=== PATIENT | male | born 1955 | race Caucasian/White ===

== ENCOUNTER → 2016-06-14 | Outpatient (CLI) | payer MEDICARE, BC ==
[2013-09-17 14:41] VITALS: BP 138/84
[~2016-06-14] MED LIST: BUPR150T6 PO; HYDR-2762 PO; IOHEXOL 180 MG/ML 10 ML VIAL. ONE; LISI10TA2 PO; OXYC1TAB7 PO; TIOT18CA IH; methylPREDNISolone ACETATE 40 MG/ML VIAL. ONE; methylPREDNISolone ACETATE 80 MG/ML VIAL. ONE
--- NOTE | 2016-06-15 02:19 | PAIN ---
DATE OF SERVICE: 06/14/2016 PROGRESS NOTE DIAGNOSES: Lumbar radiculopathy with lumbar herniated disk, lumbar degenerative disk disease. HISTORY OF PRESENT ILLNESS: The patient is a 61-year-old male who returns for followup status post lumbar epidural steroid injections x 2, most recently seen on 02/15/2016. The patient reports he did very well after the injection with about 65% improvement from the last injection. The patient reports the pain is beginning to return now, he has been helping two of his family member's relocate and has been doing a lot of moving, heavy lifting, taking objects out of the truck and into homes and out, etc. The patient reports it has exacerbated his pain to some extent in the low back, bilateral lower extremities, right equal to left, mostly in posterior gluteus, posterolateral thigh, lateral anterior thighs, lower legs on the posterior aspect as well. The patient reports no new motor or sensory deficits, no new bowel or bladder incontinence or other complaints. The patient reports the pain as 10 on scale of 10 and describes it as aching sensation for most part. The patient reports no new motor or sensory deficits, no new changes. The patient's old chart was reviewed as his current medication regimen updated. Current review of systems updated today as well. PHYSICAL EXAMINATION: VITAL SIGNS: Today, the patient's blood pressure is 150/81, pulse 68, respirations 18, temperature 98.1 degrees Fahrenheit, height is 5 feet 6 inches and weighs 139 pounds. GENERAL: The patient is awake, alert, oriented, appropriate, very pleasant demeanor. HEENT: Shows normocephalic, atraumatic. Extraocular movements are intact and symmetrical. Oral cavity shows mucous membranes are moist and pink. Dentition is intact. NECK: Shows anterior throat supple without palpable lymphadenopathy noted. Swallow reflex is symmetrical. CHEST: Shows normal on inspection. Breath sounds are clear to auscultation bilaterally. HEART: Shows S1 and S2 clear. ABDOMEN: Soft, nontender, and nondistended. BACK: Shows spine grossly in midline. The patient's lumbar paraspinous muscle shows some moderate tenderness with palpation diffusely in the mid and lower lumbar distribution, but without specific radiation, without atrophy, hypertrophy without asymmetry. No tenderness over the spinous processes or the sacrum or sacroiliac regions. The patient shows good rotation and motion of the lumbar spine, both laterally as well as extension and flexion. EXTREMITIES: The patient's lower extremities show deep tendon reflexes 2+ in the patellar tendons. Motor exam is strong with 5/5 dorsiflexion, extension, quadriceps and hamstring flexion. PLAN: Options were discussed with the patient. We will proceed with a lumbar epidural steroid injection, a third in the series with fluoroscopic guidance today. Risks were again discussed including, but not limited to bleeding, infection, possibility of epidural hematoma and subsequent neurologic compromise, dural puncture, headaches, spinal cord and/or nerve damage, side effects of steroid medication, exacerbation of current symptoms and poor results regarding pain control. The patient understands and wished to proceed. The patient will return to clinic in approximately 2 weeks for followup. He was counseled as to return appointment, activity level and side effects to be aware of. DIAGNOSES: Lumbar radiculopathy with lumbar herniated disk and lumbar degenerative disk disease. PROCEDURE: Lumbar epidural steroid injection in translaminar approach at the L4-L5 level using C-arm fluoroscopic guidance with sterile prep and drape and using local anesthetic. MEDICATION INJECTED: Depo-Medrol 120 mg plus 10 mL of preservative-free normal saline and 2 mL of Isovue for contrast. CONDITION AT DISCHARGE: Stable. The patient tolerated the procedure well, had no complications. RACHID TOBIAS MD DR: LARISA/jerome JOB#: [id number] / [id number]
== END ==
LOC: PNCL 11:45
PROVIDERS: ATTEND Anesthesiology
DX: M51.16 Intervertebral disc disorders with radiculopathy, lumbar region (principal)
CPT/HCPCS: 62323; J1030; J1040

== ENCOUNTER → 2016-11-15 | Outpatient (CLI) | payer MEDICARE ==
[2013-09-17 14:41] VITALS: BP 138/84
--- NOTE | 2016-11-16 00:08 | PAIN ---
DATE OF SERVICE: 11/15/2016 PROGRESS NOTE FOR PAIN CLINIC DIAGNOSES: Lumbar radiculopathy with lumbar herniated disk, lumbar degenerative disk disease. HISTORY OF PRESENT ILLNESS: The patient is a 61-year-old male who returns for followup status post lumbar epidural steroid injection, last seen in 06/2016. The patient did very well with about 60% improvement. The patient reports the pain is returning now for about a month in the low back, into the bilateral lower extremities as it was previously. The patient reports worse with activity, standing, walking, changing positions, it is a 10 on a scale of 10 at its worst, it is a 4 on scale 10 currently. The patient reports it wakes him from sleep. Occasionally he gets cramps in his lower legs, which awaken him, not necessarily the back pain, otherwise he is doing well. No new motor or sensory deficits, no new bowel or bladder incontinence. Just some return to the pain as described as aching, sharp, cramping tingling on and off in intensity, but becoming more constant. PHYSICAL EXAMINATION: VITAL SIGNS: The patient's blood pressure ____, pulse 80, respirations 20, temperature 97.6 degrees Fahrenheit, height is 5 feet 6 inches, weight is 135 pounds. GENERAL: The patient is awake, alert, oriented, appropriate, very pleasant demeanor. HEENT: Head shows normocephalic, atraumatic. Extraocular movements are intact and symmetrical. Oral cavity, mucous membranes are moist and pink. Dentition is intact. NECK: Shows anterior throat supple without palpable lymphadenopathy noted. Swallow reflex is symmetrical. CHEST: Shows normal on inspection. Breath sounds are clear to auscultation bilaterally. HEART: Shows S1 and S2 clear. No murmurs auscultated. ABDOMEN: Soft, nontender, nondistended. No palpable organomegaly. There is no rebound or guarding demonstrated. BACK: Shows spine grossly midline. Lumbar paraspinous musculature shows symmetrical with inspection and palpation, is very firm throughout the upper and lower distribution and diffusely tender throughout as well without atrophy, hypertrophy. The patient has good rotational motion both laterally as well as extension and flexion. EXTREMITIES: Lower extremities showed deep tendon reflexes 2+ in the patellar and 1+ tendo calcaneus tendons are equal. Motor exam is strong with dorsiflexion, extension, quadriceps and hamstring flexion rated 5/5 and symmetrical. Options were discussed with the patient, the patient's old chart was reviewed as his current medication regimen updated. Current review of systems updated today as well. We will proceed with the lumbar epidural steroid injection today with fluoroscopic guidance. Risks were again discussed including but not limited to bleeding, infection, possibility of epidural hematoma, subsequent neurologic compromise, dural puncture, headaches, spinal cord and/or nerve damage, side effects of steroid medication and poor results regarding pain control. The patient understands and wishes to proceed. The patient will return to clinic in approximately 2 weeks for followup. He was counseled on return appointment, activity level and side effects to be aware of. DIAGNOSES: Lumbar radiculopathy with lumbar herniated disk and lumbar degenerative disk disease. PROCEDURES: Lumbar epidural steroid injection in translaminar approach at the L4-L5 level using C-arm fluoroscopic guidance under sterile prep and drape using local anesthetic. MEDICATIONS INJECTED: 120 mg of Depo-Medrol plus 10 mL of preservative-free saline and 2 mL of Isovue for contrast. CONDITION AT DISCHARGE: Stable. The patient tolerated the procedure well, had no complications. RACHID TOBIAS MD DR: LARISA/jerome JOB#: [id number] / [id number]
== END | disposition home or self-care (01) ==
LOC: PNCL 09:51
PROVIDERS: ATTEND Anesthesiology
DX: M51.16 Intervertebral disc disorders with radiculopathy, lumbar region (principal); I10 Essential (primary) hypertension; J44.9 Chronic obstructive pulmonary disease, unspecified; M19.90 Unspecified osteoarthritis, unspecified site; Z87.39 Personal history of other diseases of the musculoskeletal system and connective tissue; Z72.89 Other problems related to lifestyle; Z72.0 Tobacco use
CPT/HCPCS: 62323; J1030; J1040

== ENCOUNTER → 2016-12-13 | Outpatient (CLI) | payer MEDICARE ==
[2013-09-17 14:41] VITALS: BP 138/84
[~2016-12-13] MED LIST changes: -IOHEXOL 180 MG/ML 10 ML VIAL. ONE; -methylPREDNISolone ACETATE 40 MG/ML VIAL. ONE; -methylPREDNISolone ACETATE 80 MG/ML VIAL. ONE
== END | disposition home or self-care (01) ==
LOC: PNCL 10:30
PROVIDERS: ATTEND Anesthesiology
DX: M51.16 Intervertebral disc disorders with radiculopathy, lumbar region (principal)
CPT/HCPCS: G0463

== ENCOUNTER → 2017-01-25 | Outpatient (CLI) | payer MEDICARE ==
[2013-09-17 14:41] VITALS: BP 138/84
[~2017-01-25] MED LIST changes: +IOHEXOL 180 MG/ML 10 ML VIAL. ONE; +methylPREDNISolone ACETATE 40 MG/ML VIAL. ONE; +methylPREDNISolone ACETATE 80 MG/ML VIAL. ONE
--- NOTE | 2017-01-25 21:04 | PAIN ---
DATE OF SERVICE: 01/25/2017 DIAGNOSES: Lumbar radiculopathy with lumbar herniated disk and lumbar degenerative disk disease. HISTORY OF PRESENT ILLNESS: The patient is a 61-year-old male who returns for followup status post lumbar epidural steroid injection, last injection was on 11/15/2016. The patient reports he did very well with near 100% improvement following 2 months. The pain is beginning to return now in the low back as it was previously in bilateral lower extremities. The patient reports it is a 10 on a scale of 10. It is worst, it is 8 on average and is currently a 3 on a scale of 10 today. The patient reports no new motor or sensory deficits. Reports the pain is in the low back radiating to both posterior gluteus, lateral anterior thigh, anterior medial thighs, posterior thighs, shooting, cramping, constant, on and off in intensity becoming more constant. The patient reports he is sleeping well at night. Reports pain does awaken him occasionally. He can reposition to relieve the pain, but this does not happen every night. The patient reports no new motor or sensory deficits, no new bowel or bladder incontinence or other complaints. PHYSICAL EXAMINATION: VITAL SIGNS: Today, the patient's blood pressure 136/86, pulse 71, respirations are 20, temperature is 97.9 degrees Fahrenheit. Weight is 131 pounds. The patient's height is 5 feet 6 inches. GENERAL: The patient is awake, alert, oriented, appropriate, very pleasant demeanor. HEENT: Shows normocephalic, atraumatic. Extraocular movements are intact and symmetrical. Oral cavity, mucous membranes are moist and pink. Dentition is intact. NECK: Shows anterior throat supple without palpable lymphadenopathy noted. Swallow reflex is symmetrical. CHEST: Shows normal on inspection. Breath sounds clear to auscultation bilaterally. HEART: Shows S1 and S2 clear. ABDOMEN: Soft, nontender, nondistended. No palpable organomegaly is noted. No rebound or guarding demonstrated. BACK: The patient's back show spine grossly in midline with inspection shows lumbar paraspinous musculature, which is symmetrical without evidence of atrophy or hypertrophy. With palpation shows some moderate tenderness bilaterally, but only diffusely in the lower lumbar distribution without radiation. No tenderness over the sacrum or sacroiliac regions. The patient's lumbar spine shows full rotational motion without difficulty both laterally as well as extension and flexion. EXTREMITIES: Lower extremities show deep tendon reflexes 2+ in the patellar, 1+ tendocalcaneus tendons are equal. Motor exam is strong with 5/5 dorsiflexion, extension, quadriceps and hamstring flexion equal. Options were discussed with the patient. We will plan on a second lumbar epidural steroid injection today with fluoroscopic guidance. Risks were again discussed including, but not limited to bleeding, infection, possibility of epidural hematoma, subsequent neurologic compromise, dural puncture, headaches, spinal cord and/or nerve damage, side effects of steroid medication and poor results regarding pain control. The patient understands and wishes to proceed. The patient will return to clinic in approximately 2 weeks for followup, was counseled on return appointment, activity level and side effects to be aware of. DIAGNOSIS: Lumbar radiculopathy with lumbar herniated disk and lumbar degenerative disk disease. PROCEDURE: Lumbar epidural steroid injection, translaminar approach at the L4-L5 level using C-arm fluoroscopic guidance under sterile prep and drape using local anesthetic. MEDICATION INJECTED: Total of 120 mg Depo-Medrol plus 10 mL of preservative-free normal saline and 2 mL of Isovue for contrast. CONDITION AT DISCHARGE: Stable. The patient tolerated procedure well, had no complications. RACHID TOBIAS MD DR: LARISA/jerome JOB#: [id number] / [id number]
== END | disposition home or self-care (01) ==
LOC: PNCL 11:31
PROVIDERS: ATTEND Anesthesiology
DX: M51.16 Intervertebral disc disorders with radiculopathy, lumbar region (principal); I10 Essential (primary) hypertension; J44.9 Chronic obstructive pulmonary disease, unspecified; M19.90 Unspecified osteoarthritis, unspecified site; F17.200 Nicotine dependence, unspecified, uncomplicated; Z87.39 Personal history of other diseases of the musculoskeletal system and connective tissue; Z72.89 Other problems related to lifestyle; Z72.0 Tobacco use
CPT/HCPCS: 62323; J1030; J1040

== ENCOUNTER 2017-05-07 07:36 | Emergency (ER) | payer OTHER, MEDICARE, BC ==
[2013-09-17 14:41] VITALS: BP 138/84
[~2017-05-07] VITALS: Ht 167.6 cm; Wt 58.1 kg
[~2017-05-07 07:36] MED LIST changes: -IOHEXOL 180 MG/ML 10 ML VIAL. ONE; -methylPREDNISolone ACETATE 40 MG/ML VIAL. ONE; -methylPREDNISolone ACETATE 80 MG/ML VIAL. ONE
--- NOTE | 2017-05-07 07:59 | PHYS DOC ---
Past Medical History Past Medical History: COPD, Hypertension, Other Additional Past Medical Histor: buldging disc Past Surgical History: Other Additional Past Surgical Histo: pin/plate arm and leg surgery Alcohol Use: Occasionally Drug Use: Marijuana Adult General Chief Complaint Chief Complaint: HAND PROBLEM HPI HPI Patient is a 62 year old male presents the ED complaining of numbness and tingling to bilateral hands since last night at 7pm. Patient states he recently started taking amlodipine 1 week ago. States he also takes lisinopril. Denies injury, hand swelling, tongue swelling, difficulty swallowing, headache, fever, chest pain, shortness of breath, n/v, or weakness. Review of Systems Review of Systems Constitutional: Denies fever or chills [] Eyes: Denies change in visual acuity, redness, or eye pain [] HENT: Denies nasal congestion or sore throat [] Respiratory: Denies cough or shortness of breath [] Cardiovascular: No additional information not addressed in HPI [] GI: Denies abdominal pain, nausea, vomiting, bloody stools or diarrhea [] : Denies dysuria or hematuria [] Musculoskeletal: Denies back pain or joint pain [] Integument: Denies rash or skin lesions [] Neurologic: Denies headache, focal weakness or sensory changes [] Endocrine: Denies polyuria or polydipsia [] All other systems were reviewed and found to be within normal limits, except as documented in this note. Allergies Allergies Allergies Coded Allergies Type Severity Reaction Last Updated Verified No Known Drug Allergies 09/13/13 No Physical Exam Physical Exam Constitutional: Well developed, well nourished, no acute distress, non-toxic appearance. [] HENT: Normocephalic, atraumatic Skin: Warm, dry, no erythema, no rash. [] Back: No tenderness, no CVA tenderness. [] Extremities: No tenderness, No swelling, No overlying skin changes no cyanosis, no clubbing, ROM intact, no edema. [] Neurologic: Alert and oriented X 3, normal motor function, normal sensory function, no focal deficits noted. [] Psychologic: Affect normal, judgement normal, mood normal. [] Current Patient Data Vital Signs Vital Signs Date Time Temp Pulse Resp B/P (MAP) Pulse Ox O2 Delivery O2 Flow Rate FiO2 05/07/17 07:40 98.5 72 16 132/82 (99) 98 Room Air 98.5 EKG EKG [] Radiology/Procedures Radiology/Procedures [] Course & Med Decision Making Course & Med Decision Making Pertinent Labs and Imaging studies reviewed. (See chart for details) []Paresthesias not reproducible on examination. Patient did not take any of his medications this morning. States symptoms have improved since last night when they occurred. Paresthesias to bilateral hands started after taking amlodipine. Denies other new medications, injury or changes in habit to explain bilateral paresthesias. Patient's blood pressure in the ED without taking any of his morning medications is 130s over 80s. Discussed restarting his routine medications and not taking his amlodipine. Discussed following up with PCP this week. Patient states he has an appointment this . Discussed the importance of follow-up and reasons to return to the ED. Patient understands and agrees with plan. Dragon Disclaimer Dragon Disclaimer This electronic medical record was generated, in whole or in part, using a voice recognition dictation system. Departure Departure Impression: Primary Impression: Hand paresthesia Disposition: 01 HOME, SELF-CARE Condition: STABLE Referrals: BRITTANY HENRY MD (PCP) Patient Instructions: Paresthesia EVANGELISTA TAN May 07, 2017 07:59
== END 2017-05-07 08:25 | disposition home or self-care (01) ==
LOC: ER 07:36
DX: R20.2 Paresthesia of skin (principal); I10 Essential (primary) hypertension; J44.9 Chronic obstructive pulmonary disease, unspecified; F12.10 Cannabis abuse, uncomplicated
CPT/HCPCS: 99281

== ENCOUNTER → 2017-08-09 | Outpatient (CLI) | payer OTHER, MEDICARE, BC | END | disposition home or self-care (01) | LOC: PNCL 08:25 | DX: M51.16 Intervertebral disc disorders with radiculopathy, lumbar region (principal) | CPT/HCPCS: 99212 ==

== ENCOUNTER → 2017-08-23 | Outpatient (CLI) | payer OTHER, MEDICARE, BC ==
[~2017-08-23] MED LIST changes: -BUPR150T6 PO; -HYDR-2762 PO; +IOHEXOL 180 MG/ML 10 ML VIAL.; -LISI10TA2 PO; -OXYC1TAB7 PO; -TIOT18CA IH; +methylPREDNISolone ACETATE 40 MG/ML VIAL.; +methylPREDNISolone ACETATE 80 MG/ML VIAL.
== END | disposition home or self-care (01) ==
LOC: PNCL 08:23
DX: M51.16 Intervertebral disc disorders with radiculopathy, lumbar region (principal); G89.29 Other chronic pain; I10 Essential (primary) hypertension; J43.9 Emphysema, unspecified; M19.90 Unspecified osteoarthritis, unspecified site; F17.210 Nicotine dependence, cigarettes, uncomplicated; Z79.899 Other long term (current) drug therapy; Z98.890 Other specified postprocedural states
CPT/HCPCS: 62323; J1030; J1040; Q9965

== ENCOUNTER → 2017-09-06 | Outpatient (CLI) | payer OTHER, MEDICARE, BC | LOC: PNCL 08:06 | DX: M51.16 Intervertebral disc disorders with radiculopathy, lumbar region (principal); Z79.899 Other long term (current) drug therapy; J43.9 Emphysema, unspecified; I10 Essential (primary) hypertension; F17.210 Nicotine dependence, cigarettes, uncomplicated; G89.29 Other chronic pain; M19.90 Unspecified osteoarthritis, unspecified site; Z98.890 Other specified postprocedural states | CPT/HCPCS: 62323; J1030; J1040; Q9965 ==

== ENCOUNTER → 2017-09-26 | Outpatient (CLI) | payer OTHER, MEDICARE, BC | END | disposition home or self-care (01) | LOC: PNCL 08:31 | DX: M51.16 Intervertebral disc disorders with radiculopathy, lumbar region (principal) | CPT/HCPCS: 99212 ==

== ENCOUNTER → 2017-11-16 | Outpatient (CLI) | payer OTHER, MEDICARE, BC ==
[~2017-11-16] MED LIST changes: +LIDOCAINE 1% PF 2 ML VIAL.
== END | disposition home or self-care (01) ==
LOC: PNCL 08:03
DX: M51.16 Intervertebral disc disorders with radiculopathy, lumbar region (principal); I10 Essential (primary) hypertension; J43.9 Emphysema, unspecified; M19.90 Unspecified osteoarthritis, unspecified site; Z72.89 Other problems related to lifestyle; F17.200 Nicotine dependence, unspecified, uncomplicated
CPT/HCPCS: 62323; J1030; J1040; Q9965

== ENCOUNTER → 2018-02-19 | Outpatient (CLI) | payer OTHER, MEDICARE ==
[2017-05-07 07:40] VITALS: BP 132/82
[~2018-02-19] MED LIST changes: +AMLO10TA6 PO; +BUPR150T6 PO; +ESCITALOPRAM OX10 MG PO; +HYDR-2762 PO; -IOHEXOL 180 MG/ML 10 ML VIAL.; -LIDOCAINE 1% PF 2 ML VIAL.; +LISI10TA2 PO; +OXYC1TAB7 PO; +TIOT18CA IH; -methylPREDNISolone ACETATE 40 MG/ML VIAL.; -methylPREDNISolone ACETATE 80 MG/ML VIAL.
--- NOTE | 2018-02-20 01:35 | PAIN ---
DATE OF SERVICE: 02/19/2018 PROGRESS NOTE TO THE PAIN CLINIC DIAGNOSES: Lumbar radiculopathy with lumbar herniated disk, lumbar degenerative disk disease. HISTORY: The patient is a 63-year-old male who returns for followup status post lumbar epidural steroid injection x 3, most recently on 11/16/2017. The patient did very well. His original injections in a series started in August, he did very well, and had 80% improvement with each injection lasting for several months. The patient reports he has been normal for about 3 months since his last injection; however, his pain is now beginning to return only to a moderate extent and still about 80% improved. The patient reports the pain is in the low back, bilateral lower extremities, mostly in the posterior lateral thigh, medial thighs, medial lower legs as well as posterior calves. The patient reports it as a 9 on a scale of 10 at its worse, 5 on average and 0 at its least when he is sitting down and is a 5 today. It is worse with standing, walking, changing positions. The patient reports he has been increasing his activity with distance walking. He is able to return to household activities and recreational activities with greater ease and comfort, traveling with much greater ease as well as getting out of the car and walking with much more comfort. The patient reports he is sleeping better at night. It does not awaken him from sleep. He is better with sitting or lying down, worse with standing, walking, changing positions. The patient reports it is aching, sharp, dull, tight, shooting, cramping in the lower extremities, it is radiating bilaterally, right essentially equal to left. The patient reports no new motor or sensory deficits. No new bowel or bladder incontinence or other complaints. The patient continued to do his physical therapy exercises on his own at home and is walking daily up to 1 mile on some days. PHYSICAL EXAMINATION: VITAL SIGNS: Blood pressure 158/88, pulse 83, respirations 18, temperature 98.3 degrees Fahrenheit, height 5 feet 6 inches, weighs 132 pounds. GENERAL: The patient is awake, alert, oriented, appropriate, very pleasant demeanor. HEENT: Head shows normocephalic and atraumatic. Extraocular movements are intact and symmetrical. Oral Cavity, mucous membranes are moist and pink. Dentition is intact. NECK: Shows anterior throat supple without palpable lymphadenopathy noted. Swallow reflex is symmetrical. CHEST: Normal with inspection. Breath sounds clear to auscultation bilaterally. HEART: Shows S1, S2 clear. No murmurs auscultated. ABDOMEN: Soft, nontender, nondistended, no palpable organomegaly is noted. No rebound or guarding demonstrated. BACK: Shows spine grossly in the midline. Slight flattening of thoracic kyphotic curvature and lumbar lordotic curvature. Lumbar paraspinous muscle shows symmetrical on inspection with only some mild tenderness throughout the upper, middle, and lower distribution of the paraspinous muscles bilaterally but only diffusely without radiation. Palpation shows no tenderness over the sacrum or sacroiliac regions. The patient has good rotational motion of the lumbar spine, both laterally as well as extension and flexion without significant difficulty. EXTREMITIES: Lower extremities show deep tendon reflexes of 2+ in the patella and 1+ in the tendocalcaneous tendons. Motor exam is approximately 5 on a scale of 5 at the bilateral ankles, 4/5 with quadriceps and hamstring flexion, but symmetrical and equal bilaterally. Peripheral pulses of 1+ posterior tibial. No peripheral edema is noted. The patient does have mild straight leg raise, which is increased and is positive in both right and left; at about 45 degrees, it is decreased with knee flexion bilaterally. The patient shows negative Gaenslen's and negative Earle's maneuver bilaterally as well. The patient is able to stand, stand on his toes without difficulty or loss of balance. He is walking with a slight shuffling gait, does not appear to favor the right lower extremity significantly over the other, but has a slight shuffling gait and is not using any assistive devices to ambulate. Options were discussed with the patient. The patient's old chart was reviewed as well as his current medication regimen updated and current review of systems updated today as well. He still has consistent L4-L5 dermatome distribution radiculopathy in the bilateral lower extremities despite continued exercises, physical therapy, stretching and strengthening as well as walking daily, pain is returning. Although he has had excellent response with about 80% improvement after the last injection, I would like to proceed with a lumbar epidural steroid injection, we will wait for preauthorization. The patient was given a Medrol Dosepak in the meantime with instructions and side effects to be aware of discussed. He will take this in the meantime and return in approximately 2 weeks. We will plan on the lumbar epidural steroid injection at that time. RACHID TOBIAS MD DR: LARISA/jerome JOB#: [id number] / [id number]
== END | disposition home or self-care (01) ==
LOC: PNCL 13:26
PROVIDERS: ATTEND Anesthesiology
DX: M51.16 Intervertebral disc disorders with radiculopathy, lumbar region (principal); M51.26 Other intervertebral disc displacement, lumbar region; I10 Essential (primary) hypertension; J43.9 Emphysema, unspecified; F17.210 Nicotine dependence, cigarettes, uncomplicated; Z87.39 Personal history of other diseases of the musculoskeletal system and connective tissue; Z82.49 Family history of ischemic heart disease and other diseases of the circulatory system
CPT/HCPCS: 99212

== ENCOUNTER → 2018-03-05 | Outpatient (CLI) | payer OTHER, MEDICARE ==
[2017-05-07 07:40] VITALS: BP 132/82
[~2018-03-05] MED LIST changes: +IOHEXOL 180 MG/ML 10 ML VIAL. ONE; +LIDOCAINE 2% PF 2ML VIAL. ONE; +methylPREDNISolone ACETATE 40 MG/ML VIAL. ONE; +methylPREDNISolone ACETATE 80 MG/ML VIAL. ONE
--- NOTE | 2018-03-06 00:52 | PAIN ---
DATE OF SERVICE: 03/05/2018 DIAGNOSES: 1. Lumbar radiculopathy with lumbar degenerative disk disease. 2. Lumbar herniated disk. HISTORY OF PRESENT ILLNESS: The patient is a 63-year-old male, who returns for followup status post preauthorization for lumbar epidural steroid injection. The patient has done very well with these in the past with still significant pain in the low back and lower extremities bilaterally. The patient reports no new motor or sensory deficits, no new bowel or bladder incontinence, did very well with the last series of injections, about 80% improvement overall initially, but then wearing off, becoming more noticeable in the low back and legs. The patient reports it is in the lateral thighs, anterior thighs, medial thighs, posterior lower legs and anterior medial lower legs as well. Rates it at 9 on a scale of 10 at its worst, 7 on average, 3 at its least and is 7 today. The patient reports it is aching, sharp, shooting, tingling, on and off in intensity; worse with activity, standing, walking, also difficult to sleep secondary to this pain, but does not usually awaken him from sleep when he has gone into sleep. The patient reports no new changes. No new bowel or bladder incontinence or other concerns. PHYSICAL EXAMINATION: VITAL SIGNS: The patient's blood pressure is 138/83, pulse 79, respirations 18, temperature is 98.8 degrees Fahrenheit, height is 5 feet 6 inches, weight is 133 pounds. GENERAL: The patient is awake, alert, oriented, appropriate, very pleasant demeanor. HEENT: Head is normocephalic, atraumatic. Extraocular movements intact and symmetrical. Oral cavity: Mucous membranes moist and pink. Dentition is intact. NECK: Shows anterior throat supple without palpable lymphadenopathy noted. Swallow reflex is symmetrical. CHEST: Shows normal on inspection. Breath sounds clear to auscultation bilaterally. HEART: Shows S1, S2 clear. No murmurs auscultated. ABDOMEN: Soft, nontender, nondistended. No palpable organomegaly is noted. No rebound or guarding demonstrated. BACK: Shows spine grossly in the midline. Normal appearing thoracic kyphosis and minor flattening of lumbar lordotic curvature. Lumbar paraspinous muscle shows symmetrical on inspection; on palpation it shows some mild tenderness diffusely in the low lumbar distribution bilaterally, but only with deep palpation. No radiation, no trigger points. The patient shows good rotational motion of lumbar spine, both laterally as well as extension and flexion without significantly difficulty. EXTREMITIES: Lower extremities show deep tendon reflexes 2+ in the patella, 1+ tendo calcaneus tendons. Motor exam is strong with 5/5 dorsiflexion, extension and 4/5 quadriceps and hamstring flexion, but symmetrical and equal. Peripheral pulses are 1+ posterior tibial. No peripheral edema is noted. Options were discussed with the patient. The patient's old chart was reviewed as was current medication regimen updated. Current review of systems updated today as well. We will proceed with a lumbar epidural steroid injection today as the first in this series. Risks were again discussed including, but not limited to bleeding, infection, possibility of epidural hematoma and subsequent neurological compromise, dural puncture, headaches, spinal cord and/or nerve damage, side effects of steroid medication and poor results regarding pain control. The patient understands and wished to proceed. The patient will return to clinic in approximately 2 weeks for followup. She was counseled as to return appointment, activity level and side effects to be aware of. DIAGNOSES: 1. Lumbar radiculopathy with lumbar degenerative disk disease. 2. Lumbar herniated disk. PROCEDURE: Lumbar epidural steroid injection, translaminar approach L4-L5 level using C-arm fluoroscopic guidance under sterile prep and drape using local anesthetic. MEDICATION INJECTED: A total of 120 mg Depo-Medrol plus 10 mL preservative-free normal saline and 2 mL of Isovue for contrast. CONDITION AT DISCHARGE: Stable. The patient tolerated procedure well, had no complications. RACHID TOBIAS MD DR: LARISA/jerome JOB#: [id number] / [id number]
== END | disposition home or self-care (01) ==
LOC: PNCL 14:07
PROVIDERS: ATTEND Anesthesiology
DX: M51.16 Intervertebral disc disorders with radiculopathy, lumbar region (principal); I10 Essential (primary) hypertension; F17.210 Nicotine dependence, cigarettes, uncomplicated; Z82.49 Family history of ischemic heart disease and other diseases of the circulatory system; Z79.899 Other long term (current) drug therapy; J44.9 Chronic obstructive pulmonary disease, unspecified; Z72.89 Other problems related to lifestyle; Z80.8 Family history of malignant neoplasm of other organs or systems; Z98.890 Other specified postprocedural states
CPT/HCPCS: 62323; J1030; J1040; J2001; Q9965

== ENCOUNTER → 2018-08-30 | Outpatient (CLI) | payer OTHER, MEDICARE, BC ==
[2017-05-07 07:40] VITALS: BP 132/82
[~2018-08-30] MED LIST changes: -AMLO10TA6 PO; +AMLO10TA8 PO; -HYDR-2762 PO; +HYDR-2765 PO; -LIDOCAINE 2% PF 2ML VIAL. ONE
--- NOTE | 2018-08-31 05:23 | PAIN ---
DATE OF SERVICE: 08/30/2018 PROGRESS NOTE FOR PAIN CLINIC DIAGNOSES: Lumbar radiculopathy with lumbar degenerative disk disease, lumbar herniated disk. HISTORY OF PRESENT ILLNESS: The patient is a 63-year-old male, who returns for followup status post lumbar epidural steroid injection x 1 with very good results about 80% improvement after last injection, has been returning now in the low back and bilateral lower extremities, posterior gluteus, posterolateral thigh, lateral anterior thighs, anterior medial thighs, medial lower legs, worse with walking, standing, initially doing very well for about 3 months with distance walking, doing work activities, household activities, sleeping better at night. The patient reports getting awaken him from sleep about every 6-7 hours now, reports the pain at 9 on a scale of 10 at its worst, 5 on average, 1 at its least and is 5 today. The patient reports it is aching, shooting, tight, tingling, cramping on and off in intensity, but increasing with time. The patient reports no new motor or sensory deficits, no new bowel or bladder incontinence or other complaints. PHYSICAL EXAMINATION: VITAL SIGNS: The patient's blood pressure is 177/87, pulse 67, respirations 16, temperature 98.1 degrees Fahrenheit. Height is 5 feet 6 inches and weighs 137 pounds. HEENT: Shows normocephalic, atraumatic. Extraocular movements are intact and symmetrical. Oral cavity, mucous membranes are moist and pink. Dentition intact. NECK: Shows anterior throat supple without palpable lymphadenopathy noted. Swallow reflex symmetrical. CHEST: Shows normal on inspection. Breath sounds clear to auscultation bilaterally. HEART: Shows S1, S2 clear. No murmurs auscultated. ABDOMEN: Soft, nontender, nondistended. No palpable organomegaly is noted. No rebound or guarding demonstrated. BACK: Shows spine grossly in the midline. Normal appearing thoracic kyphosis and lumbar lordotic curvature is slightly flattened. Lumbar paraspinous musculature shows moderate tenderness with palpation bilaterally, but only diffusely without radiation. EXTREMITIES: The patient's lower extremities show deep tendon reflexes 2+ in the patellar, 1+ tendo-calcaneus tendons. Motor exam is strong with 5/5 dorsiflexion, extension, quadriceps and hamstring flexion and 5/5 in the ankles and 4/5 with quadriceps and hamstring flexion, but equal and symmetrical bilaterally. Peripheral pulses are 1+ posterior tibial. No peripheral edema is noted bilaterally. Options were discussed with the patient. The patient's old chart was reviewed as his current medication regimen updated. Current review of systems updated today as well. We will proceed with lumbar epidural steroid injection as a second in the series since March. Risks were again discussed including, but not limited to bleeding, infection, possibility of epidural hematoma, subsequent neurological compromise, dural puncture, headaches, spinal cord and/or nerve damage, side effects of steroid medication and poor results regarding pain control. The patient understands and wished to proceed. The patient to return to clinic in approximately 2 weeks for followup. He was counseled on return appointment, activity level and side effects to be aware of. DIAGNOSES: Lumbar radiculopathy with lumbar degenerative disk disease and lumbar herniated disk. PROCEDURE: Lumbar epidural steroid injection, translaminar approach, L4-L5 level using C-arm fluoroscopic guidance under sterile prep and drape using local anesthetic. MEDICATION INJECTED: A total of 120 mg Depo-Medrol plus 10 mL of preservative free normal saline, 2 mL of Isovue for contrast. CONDITION AT DISCHARGE: Stable. The patient tolerated procedure well, had no complications. RACHID TOBIAS MD DR: LARISA/jerome JOB#: [id number] / [id number]
== END | disposition home or self-care (01) ==
LOC: PNCL 11:13
PROVIDERS: ATTEND Anesthesiology
DX: M51.16 Intervertebral disc disorders with radiculopathy, lumbar region (principal)
CPT/HCPCS: 62323; J1030; J1040; Q9965

== ENCOUNTER → 2019-03-10 | Outpatient (CLI) | payer MEDICARE, BC ==
[2017-05-07 07:40] VITALS: BP 132/82
--- NOTE | 2019-03-10 11:07 | PAIN ---
DATE OF SERVICE: 03/10/2019 PROGRESS NOTE FOR PAIN CLINIC DIAGNOSES: Lumbar radiculopathy with lumbar degenerative disk disease and lumbar herniated disk. HISTORY OF PRESENT ILLNESS: The patient is a 64-year-old male who returns for followup status post lumbar epidural steroid injections. Most recently on 08/30/2018, the patient did very well, had about 80% improvement after his last injection. The patient reports no new motor or sensory deficits, no new changes, still significant pain in the low back and into the bilateral lower extremities, essentially equal right and left. The patient reports it is worse with walking, standing, changing positions, better with sitting or lying down, does not awaken him from sleep every night, but has over the past few days but still sleeping about 7-8 hours at a time. The patient reports no new motor or sensory deficits, no new bowel or bladder incontinence or other complaints. On average, the patient reports his pain is an 8 on a scale of 10, 10 at its worst and 0 at its least over the past week and is a 4 today. The patient reports no bowel or bladder incontinence, no new other complaints. PHYSICAL EXAMINATION: VITAL SIGNS: The patient's blood pressure 170/97, pulse 67, respirations 16, temperature is 97.9 degrees Fahrenheit, height is 5 feet 6 inches, and weight is 139 pounds. GENERAL: The patient is awake, alert, oriented, appropriate, very pleasant demeanor. HEENT: Exam shows normocephalic, atraumatic. Extraocular movements are intact and symmetrical. Oral cavity: Mucous membranes moist and pink. Dentition is intact. NECK: Shows anterior throat supple without palpable lymphadenopathy noted. Swallow reflex symmetrical. CHEST: Shows normal on inspection. Breath sounds clear to auscultation bilaterally. HEART: Shows S1, S2 clear. No murmurs auscultated. ABDOMEN: Soft, nontender, nondistended. No palpable organomegaly is noted. No rebound or guarding demonstrated. MUSCULOSKELETAL: Shows spine grossly in the midline. Normal-appearing thoracic kyphosis and some minor flattening of lumbar lordotic curvature. Lumbar paraspinous muscle shows symmetrical on inspection, on palpation shows some moderate tenderness diffusely bilaterally but only diffusely without radiation. EXTREMITIES: Patient's lower extremities show deep tendon reflex 2+ in the patellar, 1+ in the tendo-calcaneus tendons. Motor exam is 5/5 with dorsiflexion and extension, approximately 4/5 quadriceps and hamstring flexion but symmetrical and equal bilaterally. Peripheral pulses are 1+ posterior tibia. No peripheral edema is noted bilaterally. Options were discussed with the patient. The patient's old chart was reviewed as his current medication regimen updated. Current review of systems updated today as well. We will proceed with a lumbar epidural steroid injection today with fluoroscopic guidance. Risks were again discussed including, but not limited to bleeding, infection, possibility of epidural hematoma, subsequent neurological compromise, dural puncture, headaches, spinal cord and/or nerve damage, side effects of steroid medication and poor results regarding pain control. The patient understands and wished to proceed. The patient will return to clinic in approximately 2 weeks for followup. He was counseled on return appointment, activity level and side effects to be aware of. DIAGNOSES: Lumbar radiculopathy with lumbar degenerative disk disease and lumbar herniated disk. PROCEDURE: Lumbar epidural steroid injection, translaminar approach at the L4-L5 level using C-arm fluoroscopic guidance under sterile prep and drape using local anesthetic. MEDICATION INJECTED: A total of 120 mg of Depo-Medrol plus 10 mL of preservative-free normal saline and 2 mL of contrast. CONDITION AT DISCHARGE: Stable. The patient tolerated the procedure well, had no complications. RACHID TOBIAS MD DR: LARISA/jerome JOB#: [id number] / [id number]
== END ==
LOC: PNCL 08:16
PROVIDERS: ATTEND Anesthesiology
DX: M51.16 Intervertebral disc disorders with radiculopathy, lumbar region (principal)
CPT/HCPCS: 62323; J1030; J1040; Q9965

== ENCOUNTER → 2019-09-11 | Outpatient (CLI) | payer MEDICARE, BC ==
[2017-05-07 07:40] VITALS: BP 132/82
--- NOTE | 2019-09-11 11:48 | PAIN ---
DATE OF SERVICE: 09/11/2019 PROGRESS NOTE FOR PAIN CLINIC DIAGNOSES: Lumbar radiculopathy with lumbar degenerative disk disease and lumbar herniated disk. HISTORY OF PRESENT ILLNESS: The patient is a 64-year-old male who returns for followup status post lumbar epidural steroid injections x 3, last seen in 03/2019, patient did very well with about 80% improvement for 3-4 months. The patient reports the pain began to return now over the past month or two, increasing in the low back, bilateral lower extremities, posterior gluteus, posterolateral thigh, lateral anterior thighs, medial thighs, and posterior calves. The patient reports it is aching, sharp, shooting in the lower extremities, tingling, cramping in quality, on and off in intensity, worse with walking, standing, changing positions. Initially, he was doing much better with distance walking, doing household activities, working activities, traveling with greater ease and comfort. The patient reports it is still sleeping well at night, does not awaken him from sleep. The patient rates his pain as a 9 on a scale of 10 at its worst over the past week, 5 on average, 0 at its least and is a 5 today. PHYSICAL EXAMINATION: VITAL SIGNS: The patient's blood pressure is 196/101, pulse 81, respirations 18, temperature 97.7 degrees Fahrenheit, height is 5 feet 6 inches, weight is 137 pounds. GENERAL: The patient is awake, alert, oriented, appropriate, very pleasant demeanor. HEENT: Shows normocephalic, atraumatic. Extraocular movements are intact and symmetrical. Oral cavity: Mucous membranes moist and pink. Dentition is intact. NECK: Shows anterior throat supple without palpable lymphadenopathy noted. Swallow reflex symmetrical. CHEST: Shows normal on inspection. Breath sounds are clear bilaterally. HEART: Shows S1, S2 clear. No murmurs auscultated. ABDOMEN: Soft, nontender, nondistended. BACK: Shows spine grossly in the midline. Normal appearing thoracic kyphosis and some minor flattening of lumbar lordotic curvature. Lumbar paraspinous muscle shows symmetrical on inspection, on palpation shows some moderate tenderness diffusely bilaterally and diffusely without significant radiation. The patient has good rotational motion of lumbar spine, both laterally greater than 10 degrees right and left as well as extension greater than 10 degrees, forward flexion 45 degrees without significant increase in pain. No tenderness over the spinous processes, sacrum or sacroiliac regions. EXTREMITIES: Lower extremities show deep tendon reflexes at 2+ in the patellar, 1+ tendo-calcaneus tendons. Motor exam is strong with 5/5 dorsiflexion, extension, quadriceps and hamstring flexion symmetrical. Peripheral pulses are 1+ posterior tibia. No peripheral edema is noted bilaterally. Options were discussed with the patient. The patient's old chart was reviewed as his current medication regimen updated. Current review of systems updated today as well. We will proceed with a first in the series of lumbar epidural steroid injection today with fluoroscopic guidance. Risks were again discussed including, but not limited to bleeding, infection, possibility of epidural hematoma, subsequent neurological compromise, dural puncture, headaches, spinal cord and/or nerve damage, side effects of steroid medication and poor results regarding pain control. The patient understands and wished to proceed. The patient will return to clinic in approximately 2 weeks for followup. He was counseled on return appointment, activity level and side effects to be aware of. DIAGNOSIS: Lumbar radiculopathy with lumbar degenerative disk disease with lumbar herniated disk. PROCEDURE: Lumbar epidural steroid injection, translaminar approach at the L4-L5 level using C-arm fluoroscopic guidance under sterile prep and drape using local anesthetic. MEDICATION INJECTED: A total of 120 mg Depo-Medrol plus 10 mL of preservative-free normal saline and 2 mL of contrast. CONDITION AT DISCHARGE: Stable. The patient tolerated procedure well, had no complications. RACHID TOBIAS MD DR: LARISA/jerome JOB#: [id number] / [id number]
== END | disposition home or self-care (01) ==
LOC: PNCL 10:04
PROVIDERS: ATTEND Anesthesiology
DX: M51.16 Intervertebral disc disorders with radiculopathy, lumbar region (principal); Z98.890 Other specified postprocedural states
CPT/HCPCS: 62323; J1030; J1040; Q9965

== ENCOUNTER → 2020-01-01 | Outpatient (CLI) | payer MEDICARE, BC ==
[2017-05-07 07:40] VITALS: BP 132/82
--- NOTE | 2020-01-01 13:28 | PAIN ---
DATE OF SERVICE: 01/01/2020 PROGRESS NOTE FOR PAIN CLINIC DIAGNOSES: Lumbar radiculopathy with lumbar degenerative disk disease and lumbar herniated disk. HISTORY OF PRESENT ILLNESS: The patient is a 64-year-old male who returns for followup status post lumbar epidural steroid injection x 1 on 09/11/2019. The patient did very well with this about 75% improvement initially, close to 80% improvement, now it is about 50% improvement overall. The patient reports the pain has been returning over the past month or so in the low back, bilateral lower extremities, posterior gluteus, lateral thighs, anterior thighs, medial thighs and medial and lower posterior calves. The patient reports it is an 8 on a scale of 10 at its worst over the past week, 3 on average, 1 at its least and is a 3 today. The patient reports no new motor or sensory deficits, describes the pain as aching, sharp, shooting in the low back and lower extremities with tingling and cramping in the back as well and tingling in the legs. The patient reports it is on and off in intensity, flares up here and there, now and then with increased activity, but generally does not awaken him from sleep at night, better with sitting or lying down, initially was doing much better, doing work activities, household activities, traveling with greater ease and walking greater distances. PHYSICAL EXAMINATION: VITAL SIGNS: The patient's blood pressure 171/97, pulse 74, respirations 20, temperature 97.7 degrees Fahrenheit, weight is 136 pounds. GENERAL: The patient is awake, alert, oriented, appropriate, very pleasant demeanor. HEENT: Shows normocephalic, atraumatic. Extraocular movements are intact and symmetrical. Oral cavity: Mucous membranes moist and pink. Dentition is intact. NECK: Shows anterior throat supple without palpable lymphadenopathy noted. Swallow reflex symmetrical. CHEST: Shows normal on inspection. Breath sounds are clear bilaterally. HEART: Shows S1, S2 clear. No murmurs auscultated. ABDOMEN: Soft, nontender, and nondistended. BACK: Shows spine grossly in the midline. Normal appearing thoracic kyphosis and some slight flattening of lumbar lordotic curvature. Lumbar paraspinous muscle shows symmetrical on inspection, on palpation shows some moderate tenderness diffusely bilaterally but only diffusely without significant radiation. The patient has good rotational motion of lumbar spine, both laterally, right and left, greater than 10 degrees as well as extension greater than 10 degrees, forward flexion 45 degrees without significant pain reported. EXTREMITIES: Lower extremities show deep tendon reflexes 2+ in the patellar, 1+ tendo-calcaneus tendons. Motor exam is 5/5 with dorsiflexion, extension, quadriceps and hamstring flexion symmetrical. Peripheral pulses are 1+ posterior tibial. No peripheral edema is noted. Options were discussed with the patient. The patient's old chart was reviewed as his current medication regimen updated. Current review of systems updated today as well. We will proceed with a second in a series of lumbar epidural steroid injection today with fluoroscopic guidance. Risks were again discussed including, but not limited to bleeding, infection, possibility of epidural hematoma, subsequent neurological compromise, dural puncture, headaches, spinal cord and/or nerve damage, side effects of steroid medication and poor results regarding pain control. The patient understands and wished to proceed. The patient will return to clinic in approximately 2 weeks for followup, was counseled on return appointment, activity level and side effects to be aware of. DIAGNOSES: Lumbar radiculopathy with lumbar degenerative disk disease. PROCEDURE: Lumbar epidural steroid injection, translaminar approach L4-L5 level using C-arm fluoroscopic guidance under sterile prep and drape using local anesthetic. MEDICATION INJECTED: A total of 120 mg Depo-Medrol plus 10 mL of preservative-free normal saline and 2 mL of contrast. CONDITION AT DISCHARGE: Stable. The patient tolerated the procedure well, had no complications. RACHID TOBIAS MD DR: LARISA/jerome JOB#: [id number] / [id number]
== END | disposition home or self-care (01) ==
LOC: PNCL 11:09
PROVIDERS: ATTEND Anesthesiology
DX: M51.16 Intervertebral disc disorders with radiculopathy, lumbar region (principal); I10 Essential (primary) hypertension; Z79.899 Other long term (current) drug therapy
CPT/HCPCS: 62323; J1030; J1040; Q9965

== ENCOUNTER → 2020-11-12 | Outpatient (CLI) | payer MEDICARE, BC ==
[2017-05-07 07:40] VITALS: BP 132/82
[~2020-11-12] MED LIST changes: +AMLO-187 PO; -AMLO10TA8 PO; +BUPR150T21 PO; -BUPR150T6 PO; +LISI10TA16 PO; -LISI10TA2 PO
--- NOTE | 2020-11-12 08:25 | PDOC4 ---
PROCEDURE Procedure Patient was consented for lumbar epidural steroid injection. Risks were dis cussed including but not limited to: Bleeding, infection, possibility of epidural hematoma and subsequent neurological compromise, dural puncture, headaches, spinal cord and/or nerve damage, side effects of steroid medication, and poor results regarding pain control. Patient understands and wished to proceed. Procedure is lumbar epidural steroid injection under local anesthetic using sterile prep and drape at the L4-5 level using C-arm fluoroscopic guidance in both AP and lateral views medications injected is 120 mg Depo-Medrol +10mL preservative-free normal saline and 2 mL contrast- condition at discharge is stable patient tolerated procedure well had no complications. RACHID TOBIAS MD Nov 12, 2020 08:25
--- NOTE | 2020-11-12 08:25 | PDOC ---
Progress Note - Pain Clinic Date of Service: DOS: DATE: 11/12/20 TIME: 08: Diagnosis: Dx: Lumbar radiculopathy with lumbar degenerative disc disease and lumbar herniated disc History or Present Illness: HPI: 65-year-old male returns for follow-up last seen January 01, 2020 underwent lumbar epidural steroid injections x2 last summer did very well with about 75% improvement for about 11 months patient reports pain returned just a few weeks ago in the low back and bilateral lower extremities posterior gluteus rating the lateral thighs anterior thighs medial thighs into the lower legs and into the calves as well posteriorly patient reports that he was doing very well until last few weeks and increase his distance walking doing household activities work activities sleeping better patient reports still not awaken from sleep very often but can over the past few weeks occasionally patient rates his pain as a 9 on scale 10 is worse over the past week 3 on average 1 at its least and is a 5 today patient reports aching and sharp shooting in the back tingling and cramping in the legs off and on in intensity no new motor or sensory deficits no bowel or bladder incontinence or other complaints. Patient's old MRI scan was reviewed with him today as well. Physical Exam: VS: Blood pressure is 168/105 pulse 107 respiration 16 temperature 90.4 F height is 5 foot 6 inches weight is 130 pounds PE: PHYSICAL EXAMINATION: GENERAL: The patient is awake, alert, oriented, appropriate, very pleasant demeanor HEENT: Shows normocephalic, atraumatic. Extraocular movements are intact and symmetrical. Oral cavity: Mucous membranes moist and pink. NECK: Shows anterior throat supple without palpable lymphadenopathy noted. Swallow reflex symmetrical. CHEST: Shows normal on inspection. Breath sounds are clear bilaterally, no rales rhonchi wheezes auscultated. HEART: Shows S1, S2 clear. No murmurs auscultated. ABDOMEN: Soft, nontender, nondistended. No palpable organomegaly is noted. BACK: Shows spine grossly in the midline. Normal-appearing cervical lordotic curvature. There is slightly increased thoracic kyphosis, some minor flattening of the lumbar lordotic curvature. Lumbar paraspinous muscles show symmetrical on inspection, on palpation shows some moderate tenderness diffusely throughout the upper, middle and lower distribution of the paraspinous muscles bilaterally and also into the lower thoracic paraspinous musculature, firm and tender, but without specific trigger points, without radiation of pain. The patient has good rotational motion of the lumbar spine, both laterally as well as extension and flexion without significant difficulty. No tenderness over the spinous processes, sacrum or sacroiliac regions. EXTREMITIES: Lower extremities show deep tendon reflexes 2 in the patellar and tendo calcaneus tendons. Motor exam is 5 on a scale of 5 with right dorsiflexion, extension, quadriceps and hamstring flexion and 5/5 on the left. Peripheral pulses are 1+ posterior tibial. No peripheral edema is noted bilaterally. Lower extremities are warm and dry to touch, equal in color and appearance. Straight leg raise noted to be mildly positive bilaterally at about 40 degrees decreased with knee flexion right and left equal. SKIN: Shows warm and dry, good turgor. No edema. No sores, rashes or bruising throughout. Procedure: Procedure: Options were discussed with the patient. Patient chart was reviewed his current medication regimen updated current review of systems updated today as well. We will proceed with a lumbar epidural steroid injection today with fluoroscopic guidance, as he is done very well with these in the past. Risks were discussed including but not limited to: Bleeding, infection, possibility of epidural hematoma and subsequent neurological compromise, dural puncture, headaches, spinal cord and/or nerve damage, side effects of steroid medication, and poor results regarding pain control. Patient understands and wished to proceed. Patient will return to the clinic in approximately 2 weeks for follow-up, was counseled as to return appointment activity level, and side effects to be aware of. Medication Injected: Med Injected: Procedure is lumbar epidural steroid injection under local anesthetic using sterile prep and drape at the L4-5 level using C-arm fluoroscopic guidance in both AP and lateral views medications injected is 120 mg Depo-Medrol +10mL preservative-free normal saline and 2 mL contrast- condition at discharge is stable patient tolerated procedure well had no complications. Condition at Discharge: Condition at Discharge: Condition at discharge stable, patient tolerated the procedure well and had no complications. RACHID TOBIAS MD Nov 12, 2020 08:25
== END | disposition home or self-care (01) ==
LOC: PNCL 07:57
PROVIDERS: ATTEND Anesthesiology
DX: M51.16 Intervertebral disc disorders with radiculopathy, lumbar region (principal); M19.90 Unspecified osteoarthritis, unspecified site; I10 Essential (primary) hypertension; J43.9 Emphysema, unspecified; Z87.891 Personal history of nicotine dependence; Z72.89 Other problems related to lifestyle; Z79.899 Other long term (current) drug therapy; Z98.890 Other specified postprocedural states
CPT/HCPCS: 62323; J1030; J1040; Q9965

== ENCOUNTER → 2020-11-26 | Outpatient (CLI) | payer MEDICARE, BC ==
[2017-05-07 07:40] VITALS: BP 132/82
--- NOTE | 2020-11-26 09:13 | PDOC4 ---
Procedure Note: Procedure Note: Patient was consented for cervical epidural steroid injection. Risks were discussed including but not limited to: Bleeding, infection, possibility of epidural hematoma and subsequent neurological compromise, dural puncture, headaches, spinal cord and/or nerve damage, side effects of steroid medication, and poor results regarding pain control. Patient understands and wished to proceed. Procedure cervical epidural steroid injection at the C6-7 level, using local anesthetic under sterile prep and drape using C-arm fluoroscopic guidance under local anesthesia medications injected ;120 mg Depo-Medrol +5 mL normal saline and 2 mL contrast; condition at discharge is stable patient tolerated procedure well. and had no complications RACHID TOBIAS MD Nov 26, 2020 09:13
--- NOTE | 2020-11-26 09:13 | PDOC ---
Progress Note - Pain Clinic Date of Service: DOS: DATE: 11/26/20 TIME: 09:09 Diagnosis: Dx: Lumbar radiculopathy lumbar degenerative disease lumbar herniated disc Cervical radiculopathy with cervical degenerative disc disease History or Present Illness: HPI: 65-year-old male returns follow-up status post lumbar epidural steroid action times 02 November 2010. Patient reports he did very well with near 1% improvement in the low back and bilateral lower extremities his main complaint today is neck and left upper extremity pain patient reports has become much more noticeable after his back has been feeling better with activity lifting items with left arm weightbearing repetitive motions still no loss of motor function but significant fatigability of the left upper extremity with repetitive motion patient rates the pain as eight on scale 10 is worse over the past week for an average one at its least is a four today patient scribes aching and shooting tingling on and off in intensity patient reports radiates into the posterior left deltoid and the tricep as well as the bicep and sometimes into the forearm but without loss of strength has not been dropping items or having any overt motor loss. Patient reports his low back is doing much better is increase his activity with distance walking doing household activities work activities and sleeping better at night except that the left arm now is beginning to keep him awake. Patient reports no new motor or sensory deficits no bowel or bladder incontinence. Physical Exam: VS: Blood pressure 179/101 pulse 72 respirations 16 temperature 98.3 F height is 5 feet 6 inches weight is 131 pounds PE: PHYSICAL EXAMINATION: GENERAL: The patient is awake, alert, oriented, appropriate, very pleasant in demeanor HEENT: Shows normocephalic, atraumatic. Extraocular movements are intact and symmetrical. Full castillo and mustache. Oral cavity: Mucous membranes moist and pink. NECK: Shows anterior throat supple without palpable lymphadenopathy noted. Swallow reflex symmetrical. CHEST: Shows normal on inspection. Breath sounds are clear bilaterally distant but no rales or rhonchi. HEART: Shows S1, S2 clear. No murmurs auscultated. ABDOMEN: Soft, nontender, nondistended, flat. BACK: Shows spine grossly in the midline. Normal-appearing cervical lordotic curvature. Cervical paraspinous muscles show symmetrical with inspection, on palpation some moderate tenderness inferior aspect of the cervical paraspinous muscles are radiated to the left superior medial trapezius but without trigger points without asymmetry. Patient is full rotation of motion the cervical spine both laterally as well as full extension full forward flexion without difficulty. There is slightly increased thoracic kyphosis, some minor flattening of the lumbar lordotic curvature. Lumbar paraspinous muscles show symmetrical on inspection, on palpation shows some moderate tenderness diffusely throughout the upper, middle and lower distribution of the paraspinous muscles, but without specific trigger points, without radiation of pain. The patient has good rotational motion of the lumbar spine, both laterally as well as extension and flexion without significant difficulty. No tenderness over the spinous processes, sacrum or sacroiliac regions. EXTREMITIES: Lower extremities show deep tendon reflexes 2+ in the patellar and tendo calcaneus tendons. Motor exam is five on a scale of 5 with right dorsiflexion, extension, quadriceps and hamstring flexion and five/5 on the left. Peripheral pulses are 1+ posterior tibial. No peripheral edema is noted bilaterally. Lower extremities are warm and dr. Upper extremity show deep tendon reflexes 2+ in the bicep and tricep tendons, motor exam strong with courtesy booth cashier strength rated 5 out of 5 as is bicep and tricep flexion. Shoulder shrug is strong and intact without loss of strength on resistance bilaterally. SKIN: Shows warm and dry, good turgor. No edema. No sores, rashes or bruising throughout. Procedure: Procedure: Options were discussed with the patient. Patient chart reviews his current medication regimen updated current review of systems updated today as well. We will proceed with a cervical epidural steroid injection today with fluoroscopic guidance. Risks were discussed including but not limited to: Bleeding, infection, possibility of epidural hematoma and subsequent neurological compromise, dural puncture, headaches, spinal cord and/or nerve damage, side effects of steroid medication, and poor results regarding pain control. Patient understands and wished to proceed. Patient will return to the clinic in approximately 2 weeks for follow-up, was counseled as to return appointment activity level and side effects to be aware of. Medication Injected: Med Injected: Procedure cervical epidural steroid injection at the C6-7 level, using local anesthetic under sterile prep and drape using C-arm fluoroscopic guidance under local anesthesia medications injected ;120 mg Depo-Medrol +5 mL normal saline and 2 mL contrast; condition at discharge is stable patient tolerated procedure well. and had no complications Condition at Discharge: Condition at Discharge: Condition at discharge stable, patient alert procedure well and had no complications. RACHID TOBIAS MD Nov 26, 2020 09:13
== END | disposition home or self-care (01) ==
LOC: PNCL 08:06
PROVIDERS: ATTEND Anesthesiology
DX: M50.10 Cervical disc disorder with radiculopathy, unspecified cervical region (principal); M51.16 Intervertebral disc disorders with radiculopathy, lumbar region; I10 Essential (primary) hypertension; J43.9 Emphysema, unspecified; M19.90 Unspecified osteoarthritis, unspecified site; Z87.891 Personal history of nicotine dependence; Z79.899 Other long term (current) drug therapy; Z98.890 Other specified postprocedural states; Z72.89 Other problems related to lifestyle
CPT/HCPCS: 62321; J1030; J1040; Q9965